=== PATIENT | female | born 1975 | race American Indian/Alaskan Native ===

== ENCOUNTER 2018-11-04 13:17 | Emergency (ER) | payer MEDICAID ==
--- NOTE | 2018-11-04 14:25 | Emergency Department Report ---
Blank Doc - Documentation Documentation: 43 y/o female with a hx/o chronic abd pain and had a sz [facility]
[2018-11-04 17:39] LABS: Hematocrit 28.7 % (30.3-42.9); Hemoglobin 8.6 gm/dl (10.1-14.3); Mean Corpuscular HGB Conc 30 % (30-34); Mean Corpuscular Volume 68 fl (79-97); Platelet Count 246 K/mm3 (140-440); Red Blood Count 4.26 M/mm3 (3.65-5.03); Red Cell Distribution Width 19.7 % (13.2-15.2)
[2018-11-04 17:51] LABS: Alanine Aminotransferase 17 units/L (7-56); Albumin 4.1 g/dL (3.9-5); BUN/Creatinine Ratio 13; Blood Urea Nitrogen 9 mg/dL (7-17); Calcium 9.1 mg/dL (8.4-10.2); Hemolysis Index 77
[2018-11-04 18:12] LABS: Basophils % (Manual) 0 % (0.0-1.8); Total Cells Counted 100
[2018-11-04 18:13] LABS: Anisocytosis 3+; Hypochromasia 2+; Ovalocytes 1+; Platelet Estimate Consistent w Auto; Poikilocytosis 1+; Tear Drop Cells Few
[2018-11-04] MEDS ORDERED: BENADRYL IV STA (18:55)
[2018-11-04] MEDS ORDERED: REGLAN IV STA (18:55)
[2018-11-04] MEDS ORDERED: NACL 0.9% 1000 ML 1,000 ML IV ONE (18:55)
[2018-11-04 19:18] LABS: Bacteria,Urine 1+ /HPF (Negative); Bilirubin,Urine NEG (Negative); Blood,Urine NEG (Negative); Color,Urine Yellow (Yellow); Mucus,Urine FEW /HPF; Protein,Urine <15 mg/dL mg/dL (Negative); Urobilinogen,Urine < 2.0 mg/dL (<2.0)
[2018-11-04] MEDS ORDERED: DILAUDID IV STA (20:36)
[2018-11-04] MEDS ORDERED: LASIX IV STA (20:37)
[2018-11-04 22:17] VITALS: BP 102/60
--- NOTE | 2018-11-04 22:53 | Cat Scan Report ---
PROCEDURE: CT ABDOMEN PELVIS W CON TECHNIQUE: Computerized axial tomography of the abdomen and pelvis was performed after the IV inject ion of iodinated nonionic contrast. CT DOSE LENGTH PRODUCT: 2194.4 mGycm HISTORY: abd pain. COMPARISONS: None . FINDINGS: Liver, spleen, pancreas and adrenal glands are within normal limits. Bilateral kidneys demonstrate un iform enhancement. There is mild degree of prominence of the right collecting system and right ureter . Urinary bladder demonstrates normal outlines. Aorta is of normal caliber. There is no free fluid or free air. Gallbladder is unremarkable. Small bowel loops are within normal limits. Large amount of r esidual stool is noted. Appendix is not distinctly visualized. There are no inflammatory changes in t he right lower quadrant. A 10.7 x 8.0 cm mass lesion is noted in the right lower quadrant. Vertebral height is normal. There is diffuse increased density of the bony skeleton. IMPRESSION: The site of origin of right lower quadrant mass lesion is difficult to determine. Differential diagno sis includes etiologies such as right ovarian mass, pedunculated uterine fibroid, lymph huang mass et c. ultrasound evaluation is recommended. Diffuse increased bone density is noted. Differential diagnosis includes etiologies such as metastati c bone disease, metabolic bone, osteophytosis, disease sickle cell disease at This document is electronically signed by Bob Martinez MD., Nov 04 2018 10:51:25 PM ET
[2018-11-04] MEDS ORDERED: DILAUDID IV ONE (23:10)
[2018-11-04] MEDS ORDERED: NACL 0.9% 500 ML 500 ML ONE (23:25)
--- NOTE | 2018-11-05 00:10 | Emergency Department Report ---
ED Abdominal Pain HPI - General Chief Complaint: Abdominal Pain Stated Complaint: STOMACH PAIN/ABD PAIN/SEIZURE Time Seen by Provider: 11/04/18 18:03 Source: patient Mode of arrival: Wheelchair Limitations: No Limitations - History of Present Illness Initial Comments: 43-year-old -[place] female with past medical history of COPD, migraines, OCD, depression, pulmonary embolism, seizure disorder(Currently under the care of Dr. David judd and return to locate the trigger for her seizures. She has underwent an aggressive video monitoring September 2018.), Gastric bypass 2001 with past history of bowel obstruction 2 resulting in hernia and mesh implant repair. Presents to the Emergency department today with her mother for evaluation for abdominal pain. She was currently seeing Dr. David judd today for her follow-up visit. He actually wheeled her over here due to her having episodes of weakness, dizziness and abdominal pain. Pain is crampy, dull, throbbing to the mid abdomen, worse with certain range of motion and palpation and when attempting to eat. She hasn't had a decreased appetite for the past week or so due to the progressively worsening pain. She is on chronic pain therapy on oxycodone on an methadone at home along with some Ativan and takes Dilaudid by mouth reports that has not been helping her discomfort. She has not yet missed any dosages of medication. MD Complaint: abdominal pain Location: diffuse Radiation: none Migration to: no migration Severity: mild Severity scale (0 -10): 8 Quality: aching, dull Consistency: constant Worsens With: nothing Associated Symptoms: denies: vomiting, diarrhea, chills, constipation, dysuria, hematemesis, melena, hematuria, anorexia - Related Data Home Medications Medication Instructions Recorded Confirmed Last Taken Butalbit/Acetamin/Caff/Codeine 1 each PO Q4HR 07/21/13 12/07/14 08/17/13 [Fioricet-Cod 75-50-992-40 Cap] Fluticasone Propionate [Flonase] 2 sprays NS TID 07/21/13 12/07/14 08/16/13 LORazepam [Ativan] 1 mg PO TID 07/21/13 12/07/14 08/17/13 Loratadine [Claritin] 10 mg PO DAILY 07/21/13 12/07/14 08/17/13 Methadone [Dolophine] 20 mg PO QID 07/21/13 12/07/14 08/17/13 Oxycodone HCl [OxyCONTIN] 15 mg PO Q4H 07/21/13 12/07/14 08/17/13 Promethazine [Phenergan] 25 mg PO Q4H 07/21/13 12/07/14 08/17/13 levETIRAcetam [Keppra TAB] 1,000 mg PO BID 07/21/13 12/07/14 08/18/13 Hydromorphone HCl [Dilaudid] 4 mg PO Q2H PRN 12/07/14 12/07/14 Unknown Sertraline [Zoloft] 25 mg PO QDAY 12/07/14 12/07/14 Unknown Previous Rx's Medication Instructions Recorded Last Taken Type Hyoscyamine Subl [Levsin Sl] 0.125 mg SL Q4HR PRN #16 tablet 11/05/18 Unknown Rx Ondansetron [Zofran ODT TAB] 8 mg PO Q12HR #14 tab.rapdis 11/05/18 Unknown Rx Allergies Allergy/AdvReac Type Severity Reaction Status Date / Time iodine Allergy Severe Rash Verified 11/04/18 13:20 metronidazole [From Flagyl] Allergy Severe Rash Verified 11/04/18 13:20 Metronidazole HCl Allergy Severe Rash Verified 11/04/18 13:20 [From Flagyl] morphine Allergy Severe Rash Verified 11/04/18 13:20 shellfish derived Allergy Severe Swelling Verified 11/04/18 13:20 sulfamethoxazole Allergy Severe Rash Verified 11/04/18 13:20 [From Bactrim] trimethoprim [From Bactrim] Allergy Severe Rash Verified 11/04/18 13:20 latex AdvReac Mild Itching Verified 11/04/18 13:20 ED Review of Systems ROS: Stated complaint: STOMACH PAIN/ABD PAIN/SEIZURE Other details as noted in HPI Constitutional: malaise. denies: chills, fever Eyes: denies: eye pain, eye discharge, vision change ENT: denies: ear pain, throat pain Respiratory: denies: cough, shortness of breath, wheezing Cardiovascular: denies: chest pain, palpitations Endocrine: no symptoms reported Gastrointestinal: abdominal pain, nausea, constipation. 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 kidney problems - Surgical History Additional Surgical History: gastric bypass 2002. intestines resection. abd blockage. hernia. mesh implant in stomach - Social History Smoking Status: Never Smoker Substance Use Type: None - Medications Home Medications: Home Medications Medication Instructions Recorded Confirmed Last Taken Type Butalbit/Acetamin/Caff/Codeine 1 each PO Q4HR 07/21/13 12/07/14 08/17/13 History [Fioricet-Cod 68-17-146-40 Cap] Fluticasone Propionate [Flonase] 2 sprays NS TID 07/21/13 12/07/14 08/16/13 History LORazepam [Ativan] 1 mg PO TID 07/21/13 12/07/14 08/17/13 History Loratadine [Claritin] 10 mg PO DAILY 07/21/13 12/07/14 08/17/13 History Methadone [Dolophine] 20 mg PO QID 07/21/13 12/07/14 08/17/13 History Oxycodone HCl [OxyCONTIN] 15 mg PO Q4H 07/21/13 12/07/14 08/17/13 History Promethazine [Phenergan] 25 mg PO Q4H 07/21/13 12/07/14 08/17/13 History levETIRAcetam [Keppra TAB] 1,000 mg PO BID 07/21/13 12/07/14 08/18/13 History Hydromorphone HCl [Dilaudid] 4 mg PO Q2H PRN 12/07/14 12/07/14 Unknown History Sertraline [Zoloft] 25 mg PO QDAY 12/07/14 12/07/14 Unknown History Hyoscyamine Subl [Levsin Sl] 0.125 mg SL Q4HR PRN #16 tablet 11/05/18 Unknown Rx Ondansetron [Zofran ODT TAB] 8 mg PO Q12HR #14 tab.rapdis 11/05/18 Unknown Rx ED Physical Exam - General Limitations: No Limitations General appearance: alert, in no apparent distress - Head Head exam: Present: atraumatic, normocephalic - Eye Eye exam: Present: normal appearance - ENT ENT exam: Present: mucous membranes moist - Neck Neck exam: Present: normal inspection - Respiratory Respiratory exam: Present: normal lung sounds bilaterally. Absent: respiratory distress - Cardiovascular Cardiovascular Exam: Present: regular rate, normal rhythm. Absent: systolic murmur, diastolic murmur, rubs, gallop - GI/Abdominal GI/Abdominal exam: Present: soft, tenderness (diffuse tenderness. Bowel sounds positive 4 quadrants. Several well-healed scars), normal bowel sounds. Absent: hypoactive bowel sounds, mass, pulsatile mass - Extremities Exam Extremities exam: Present: normal inspection - Back Exam Back exam: Present: normal inspection - Neurological Exam Neurological exam: Present: alert, oriented X3 - Psychiatric Psychiatric exam: Present: normal affect, normal mood - Skin Skin exam: Present: warm, dry, intact, normal color. Absent: rash ED Course Vital Signs 11/04/18 11/04/18 11/04/18 14:05 20:50 21:00 Temperature 98.1 F 98.0 F Pulse Rate 76 90 Respiratory 16 18 18 Rate Blood Pressure 101/62 Blood Pressure 102/60 [Left] O2 Sat by Pulse 100 100 Oximetry 11/04/18 11/05/18 11/05/18 23:39 02:51 03:21 Temperature Pulse Rate Respiratory 18 18 18 Rate Blood Pressure Blood Pressure [Left] O2 Sat by Pulse Oximetry ED Medical Decision Making - Lab Data Result diagrams: 11/04/18 17:12 11/05/18 01:35 - Radiology Data Radiology results: report reviewed ultrasound Report Signed Patient: LINK MARVIN MR#: [id number] : 1975 Acct:[id number] Age/Sex: 43 / F ADM Date: 11/04/18 Loc: ED Attending Dr: Ordering Physician: MEL ATKINSON Date of Service: 11/04/18 Procedure(s): US abdomen limited Accession Number(s): [id number] cc: MEL ATKINSON PROCEDURE: US ABDOMEN LIMITED HISTORY: RLQ PAIN. MASS ON CT TO RLQ US ADVISED FINDINGS: Real-time ultrasound of the right upper quadrant was performed. The liver appears normal in size and echotexture. There is no evidence of gallstones or of cholecystitis. The common duct measures 0.3 cm which is within normal limits. The right kidney measures 9.4 x 3.9 x 5.2 cm. There is no evidence of hydronephrosis. The visualized portion of pancreas is unremarkable. IMPRESSION: No evidence of gallstones or of cholecystitis This document is electronically signed by Derrick Cunha MD., Nov 05 2018 12:28:39 AM ET atient: LINK MARVIN MR#: [id number] : 1975 Acct:[id number] Age/Sex: 43 / F ADM Date: 11/04/18 Loc: ED Attending Dr: Ordering Physician: MEL MOORE Date of Service: 11/04/18 Procedure(s): CT abdomen pelvis w con Accession Number(s): [id number] cc: MEL MOORE PROCEDURE: CT ABDOMEN PELVIS W CON TECHNIQUE: Computerized axial tomography of the abdomen and pelvis was performed after the IV injection of iodinated nonionic contrast. CT DOSE LENGTH PRODUCT: 2194.4 mGycm HISTORY: abd pain. COMPARISONS: None . FINDINGS: Liver, spleen, pancreas and adrenal glands are within normal limits. Bilateral kidneys demonstrate uniform enhancement. There is mild degree of prominence of the right collecting system and right ureter. Urinary bladder demonstrates normal outlines. Aorta is of normal caliber. There is no free fluid or free air. Gallbladder is unremarkable. Small bowel loops are within normal limits. Large amount of residual stool is noted. Appendix is not distinctly visualized. There are no inflammatory changes in the right lower quadrant. A 10.7 x 8.0 cm mass lesion is noted in the right lower quadrant. Vertebral height is normal. There is diffuse increased density of the bony skeleton. IMPRESSION: The site of origin of right lower quadrant mass lesion is difficult to determine. Differential diagnosis includes etiologies such as right ovarian mass, pedunculated uterine fibroid, lymph huang mass etc. ultrasound evaluation is recommended. Diffuse increased bone density is noted. Differential diagnosis includes etiologies such as metastatic bone disease, metabolic bone, osteophytosis, disease sickle cell disease at This document is electronically signed by Bob Martinez MD., Nov 04 2018 10:51:25 PM ET - Medical Decision Making Chronic pain discontinue needs to be further addressed with the pain management provided. Laboratory data does still [id number] chronic anemia as well as we discussed not in the area required for transfusion and closer to 9. This is a significant improvement from the movements of 7. CT scan does not show an acute obstructive processes or inflammatory/infectious processes, but did show a large mass to the right lower quadrant was confirmed on ultrasound to be stemming from the uterus appears to be a large painful fibroid. Needs follow-up with WOUND TREATMENT RN for definitive management of this mASS. Continue to work with MRA and a neurologist listed for control of her seizures. Patient and Mal[place]g's parents throughout the entire visit. Pain was controlled in the hand with fentanyl. We discussed in great detail ultrasound and CT scan. She understands the need to follow-up with her neurologist and GI. We also discussed her hyperkalemia, which is improved from 6-4.4. She left on her own power no acute distress, ambulating with no difficulty Critical care attestation.: If time is entered above; I have spent that time in minutes in the direct care of this critically ill patient, excluding procedure time. ED Disposition Clinical Impression: Fibroid, Chronic abdominal pain, Chronic anemia Disposition: DC-01 TO HOME OR SELFCARE Is pt being admited?: No Does the pt Need Aspirin: No Condition: Stable Instructions: Uterine Fibroids (ED), Robot Assisted Laparoscopic Hysterectomy (GEN), Abdominal Pain (ED), Recurrent Seizures Adult (ED), Anemia (ED) Additional Instructions: Chronic pain discontinue needs to be further addressed with the pain management provided. Laboratory data does still [id number] chronic anemia as well as we discussed not in the area required for transfusion and closer to 9. This is a significant improvement from the movements of 7. CT scan does not show an acute obstructive processes or inflammatory/infectious processes, but did show a large mass to the right lower quadrant was confirmed on ultrasound to be stemming from the uterus appears to be a large painful fibroid. Needs follow-up with WOUND TREATMENT RN for definitive management of this mASS. Continue to work with MRA and a neurologist listed for control of her seizures Prescriptions: Hyoscyamine Subl [Levsin Sl] 0.125 mg SL Q4HR PRN #16 tablet PRN Reason: Spasms Ondansetron [Zofran ODT TAB] 8 mg PO Q12HR #14 tab.rapdis Referrals: PRAVIN BRICEÑO MD [Staff Physician] - 3-5 Days [place] SOLIS STORM MD [Primary Care Provider] - 3-5 Days [facility] [Provider Group] - 3-5 Days
[2018-11-05] MEDS ORDERED: LEVSIN SL SL ONE (00:11)
[2018-11-05] MEDS ORDERED: TORADOL IV STA (00:11)
--- NOTE | 2018-11-05 00:29 | Ultrasound Report ---
PROCEDURE: US PELVIC COMPLETE HISTORY: RLQ PAIN. MASS ON CT TO RLQ US ADVISED FINDINGS: Real-time ultrasound of the pelvis was performed by transabdominal technique. Correlation i s made to the abdominal and pelvic CT examination of earlier in the day. The uterus measures 8.9 x 4.2 x 5.1 cm. There is a right superior pedunculated fundal leiomyoma measu ring approximately 10.[address], this mass also appears likely to be of uterine origin as it is iso dense to the uterus and there appears to be contiguity of the uterine myometrium and the mass on sagi ttal image 127. The endometrial stripe measures 0.44 cm which is normal. On ultrasound, neither ovary is identified. IMPRESSION: Suspected right superior fundal exophytic leiomyoma Neither ovary is seen This document is electronically signed by Derrick Cunha MD., Nov 05 2018 12:27:36 AM ET
--- NOTE | 2018-11-05 00:30 | Ultrasound Report ---
PROCEDURE: US ABDOMEN LIMITED HISTORY: RLQ PAIN. MASS ON CT TO RLQ US ADVISED FINDINGS: Real-time ultrasound of the right upper quadrant was performed. The liver appears normal in size and echotexture. There is no evidence of gallstones or of cholecystitis. The common duct measures 0.3 cm which is within normal limits. The right kidney measures 9.4 x 3.9 x 5.2 cm. There is no evidence of hydronephrosis. The visualized portion of pancreas is unremarkable. IMPRESSION: No evidence of gallstones or of cholecystitis This document is electronically signed by Derrick Cunha MD., Nov 05 2018 12:28:39 AM ET
[2018-11-05] MEDS ORDERED: SUBLIMAZE IV STA (03:41)
== END 2018-11-05 04:46 | disposition home or self-care (01) ==
LOC: ED 13:17
DX: D21.9 Benign neoplasm of connective and other soft tissue, unspecified (principal); D64.9 Anemia, unspecified; R10.84 Generalized abdominal pain; K21.9 Gastro-esophageal reflux disease without esophagitis; G43.909 Migraine, unspecified, not intractable, without status migrainosus; J44.9 Chronic obstructive pulmonary disease, unspecified; Z88.6 Allergy status to analgesic agent; Z88.8 Allergy status to other drugs, medicaments and biological substances
CPT/HCPCS: 36415; 74177; 76705; 76856; 80053; 81001; 84132; 85007; 85025; 93005; 93010; 96361; 96374; 96375; 96376; 99284; J1170; J1200; J1885; J1940; J2765; J3010; J7030; J7040; Q9967

== ENCOUNTER 2021-11-10 19:12 | Emergency (ER) | payer MEDICAID ==
[2021-11-10 23:55] VITALS: BP 134/81
--- NOTE | 2021-11-11 12:32 | Electrocardiograph Report ---
[facility] Test Date: 2021-11-10 Test Time: 20:53:18 Pat Name: LINK MARVIN Department: Room: Gender: F Vat Cleaner: NERI : 1975 Requested By: RONALD JOHNSON Order Number: [id number] Reading MD: Nazario Bailey Measurements Intervals [place] Rate: 119 P: 59 NM: 159 QRS: 32 QRSD: 75 T: 60 QT: 320 QTc: 451 Interpretive Statements Sinus tachycardia No previous ECG available for comparison Electronically Signed On 11-11-2021 12:32:16 EDT by Nazario Bailey
== END 2021-11-11 07:48 | disposition left against medical advice (07) ==
LOC: ED 19:12
DX: R60.1 Generalized edema (principal); Z53.21 Procedure and treatment not carried out due to patient leaving prior to being seen by health care provider
CPT/HCPCS: 93005